=== PATIENT | female | born 1970 | race Caucasian/White ===

== ENCOUNTER 2021-10-20 00:02 | Emergency (ER) | payer OTHER ==
[2021-10-20 01:28] LABS: RED BLOOD COUNT 4.55 M/UL (4.00-5.10); WHITE BLOOD COUNT 11.2 K/UL (4.5-11.0)
[2021-10-20 01:52] LABS: BUN/CREATININE RATIO 12 (0-10)
== END 2021-10-20 08:27 | disposition home or self-care (01) ==
LOC: ER1 00:02
PROVIDERS: Student in an Organized Health Care Education/Training Program
DX: R07.9 Chest pain, unspecified (principal); K21.9 Gastro-esophageal reflux disease without esophagitis; Z51.81 Encounter for therapeutic drug level monitoring
CPT/HCPCS: 71045; 80053; 82550; 82553; 84484; 85025; 85379; 85610; 85730; 93005; 99285; Q9967